=== PATIENT | female | born 1940 | race Caucasian/White ===

== ENCOUNTER 2018-03-15 08:16 | Emergency (ER) | payer OTHER ==
[~2018-03-15] VITALS: Ht 167.6 cm; Wt 83.9 kg
[2018-03-15] MEDS ORDERED: LIVALO1 MG (08:35)
[2018-03-15] MEDS ORDERED: LOSA25 (08:36)
[2018-03-15] MEDS ORDERED: ASPI81CH PO (08:36)
[2018-03-15] MEDS ORDERED: Norco 5-325 Ta1 EACH PO (09:53)
== END 2018-03-15 10:20 | disposition home or self-care (01) ==
LOC: ER 08:16
DX: M75.51 Bursitis of right shoulder (principal); I10 Essential (primary) hypertension; E11.9 Type 2 diabetes mellitus without complications; Z79.899 Other long term (current) drug therapy; Z79.82 Long term (current) use of aspirin
CPT/HCPCS: 73030; 99283-25

== ENCOUNTER → 2020-10-24 | Outpatient (CLI) | payer OTHER ==
[~2020-10-24] MED LIST: ASPI81CH PO; LIVALO1 MG; LOSA25; Norco 5-325 Ta1 EACH PO
== END | disposition home or self-care (01) ==
LOC: LAB 10:52 → LAB SHORT 10:52
DX: D48.5 Neoplasm of uncertain behavior of skin (principal)
CPT/HCPCS: 88305

== ENCOUNTER 2024-04-01 08:32 | Day surgery (SDC) | payer OTHER ==
[~2024-04-01] VITALS: Ht 167.6 cm; Wt 76.3 kg
[~2024-04-01 08:32] MED LIST changes: +Balanced Salt Epinephrine Irrigation Solution 500 mL IR SCH; +LIVALO2 MG PO; +LOSA50 PO; +Lidocaine HCl/Pf 1% 5 ML VIAL XX SCH; +Moxifloxacin HCL 0.5 MG/0.1 ML 0.4MLSYR RIGHTEYE SCH; +NS 500 ML IV ONE; +PHENYLEPHRINE\\TROPICAMIDE\\TETRACAINE OPHTHALMIC DILATING SOLN RIGHTEYE PRN; +Povidone-Iodine 450 DROP/30 ML Solution ONE; +Povidone-Iodine 450 DROP/30 ML Solution RIGHTEYE SCH; +ROSUVASTATIN CAL5 MG PO; +Tetracaine HCl/Pf 0.5% Opth Soln 4 ml ONE; +Triamcinolone Inj Susp 40 MG / ML 1ML Vial INJ SCH; +Triamcinolone Inj Susp 40 MG / ML 1ML Vial ONE
[2024-04-01] MEDS ORDERED: NS 500 ML IV ONE (09:32)
[2024-04-01] MEDS ORDERED: Midazolam HCl 1MG / ML 2ML Vial ONE (09:45)
[2024-04-01] MEDS ORDERED: Tetracaine HCl 0.5% Opth Soln 15 ml RIGHTEYE ONE (09:46)
[2024-04-01] MEDS ORDERED: Labetalol HCL 5 MG/ML 4ML Injection (Single Dose) ONE (09:48)
[2024-04-01 10:34] VITALS: BP 121/59
== END 2024-04-01 10:25 | disposition home or self-care (01) ==
LOC: ORSCSDS 08:32
PROVIDERS: Ophthalmology
PROC: 08RJ3JZ Replacement of Right Lens with Synthetic Substitute, Percutaneous Approach (ICD-10-PCS; principal; 2024-04-01 10:00)
DX: E11.36 Type 2 diabetes mellitus with diabetic cataract (principal); H25.811 Combined forms of age-related cataract, right eye; H52.03 Hypermetropia, bilateral; I10 Essential (primary) hypertension; Z79.899 Other long term (current) drug therapy; Z87.891 Personal history of nicotine dependence
CPT/HCPCS: 82947; J2250; J3301; J7040; V2632

== ENCOUNTER 2024-04-07 08:35 | Day surgery (SDC) | payer OTHER ==
[~2024-04-07] VITALS: Ht 167.6 cm; Wt 69.8 kg
[~2024-04-07 08:35] MED LIST changes: +Moxifloxacin HCL 0.5 MG/0.1 ML 0.4MLSYR LEFTEYE SCH; -Moxifloxacin HCL 0.5 MG/0.1 ML 0.4MLSYR RIGHTEYE SCH; +PHENYLEPHRINE\\TROPICAMIDE\\TETRACAINE OPHTHALMIC DILATING SOLN LEFTEYE PRN; -PHENYLEPHRINE\\TROPICAMIDE\\TETRACAINE OPHTHALMIC DILATING SOLN RIGHTEYE PRN; +Povidone-Iodine 450 DROP/30 ML Solution LEFTEYE SCH; -Povidone-Iodine 450 DROP/30 ML Solution RIGHTEYE SCH
[2024-04-07] MEDS ORDERED: NS 500 ML IV ONE (09:13)
[2024-04-07] MEDS ORDERED: Midazolam HCl 1MG / ML 2ML Vial ONE (09:41)
[2024-04-07 10:27] VITALS: BP 127/57
== END 2024-04-07 10:17 | disposition home or self-care (01) ==
LOC: ORSCSDS 08:35
PROVIDERS: Ophthalmology
PROC: 08RK3JZ Replacement of Left Lens with Synthetic Substitute, Percutaneous Approach (ICD-10-PCS; principal; 2024-04-07 10:00)
DX: E11.36 Type 2 diabetes mellitus with diabetic cataract (principal); H25.812 Combined forms of age-related cataract, left eye; Z96.1 Presence of intraocular lens; H52.03 Hypermetropia, bilateral; D31.32 Benign neoplasm of left choroid; I10 Essential (primary) hypertension; Z87.891 Personal history of nicotine dependence; Z79.899 Other long term (current) drug therapy
CPT/HCPCS: 82947; J2250; J3301; J7040; V2632